=== PATIENT | male | born 1975 | race African-American/Black ===

== ENCOUNTER 2020-05-25 10:20 | Emergency (ER) | payer SELFPAY ==
[~2020-05-25] VITALS: Ht 188 cm; Wt 85.0 kg
[2020-05-25 10:26] VITALS: Ht 188 cm; Wt 85.0 kg
[2020-05-25] MEDS ORDERED: DICLOFENAC SODI50 MG PO (10:46)
[2020-05-25 11:34] VITALS: BP 142/74
== END 2020-05-25 11:34 | disposition home or self-care (01) ==
LOC: D.ER 10:20
DX: M25.561 Pain in right knee (principal); R03.0 Elevated blood-pressure reading, without diagnosis of hypertension; M23.92 Unspecified internal derangement of left knee